=== PATIENT | male | born 1995 | race Caucasian/White ===

== ENCOUNTER 2021-05-26 23:57 | Inpatient (IN) | payer MEDICAID, OTHER ==
[~2021-05-26] VITALS: Ht 170.2 cm; Wt 75.3 kg
[2021-05-27 00:41] LABS: BASOPHILS % (AUTO) 0.4 % (0.0-2.0); EOSINOPHILS % (AUTO) 0.5 % (1.0-6.0); HEMATOCRIT 43.5 % (41-53); HEMOGLOBIN 14.8 g/dL (13.5-17.5); LYMPHOCYTES # (AUTO) 3.2 K/uL (1.0-4.8); LYMPHOCYTES % (AUTO) 35.5 % (22.0-44.0); MEAN CORPUSCULAR HEMOGLOBIN 32.3 pg (26.0-34.0); MEAN CORPUSCULAR VOLUME 95 fL (80-100); MONOCYTES # (AUTO) 0.7 K/uL (0.1-1.0); MONOCYTES % (AUTO) 8.2 % (2.0-9.0); NEUTROPHILS # (AUTO) 5.1 K/uL (1.8-7.7); NEUTROPHILS % (AUTO) 55.4 % (40.0-70.0); PLATELET COUNT (AUTO) 280 K/uL (150-450); RED BLOOD CELL COUNT(AUTO) 4.57 MIL/uL (4.50-5.90); RED CELL DISTRIBUTION WIDTH 13.2 % (11.5-14.5)
[2021-05-27 00:49] LABS: AMPHET/METH SCREEN,URINE POSITIVE (NEGATIVE); BARBITURATE SCREEN, URINE NEGATIVE (NEGATIVE); BENZODIAZEPINES SCREEN,URINE NEGATIVE (NEGATIVE); CANNABINOID SCREEN,URINE POSITIVE (NEGATIVE); COCAINE SCREEN,URINE NEGATIVE (NEGATIVE); METHADONE SCREEN, URINE NEGATIVE (NEGATIVE); OPIATE SCREEN,URINE NEGATIVE (NEGATIVE)
[2021-05-27 00:50] LABS: ANION GAP 9 mmol/L (8-16); CALCIUM, TOTAL 8.7 mg/dL (8.8-10.5); CARBON DIOXIDE 28 mmol/L (22-29); CHLORIDE 103 mmol/L (98-107); CREATININE 1.07 mg/dL (0.60-1.30); GLOMERULAR FILTR. RATE CALC > 60 mL/min (>60); GLUCOSE,RANDOM 118 mg/dL (70-110); POTASSIUM 4.5 mmol/L (3.5-5.1); SODIUM SERUM 140 mmol/L (136-145); UREA NITROGEN, BLOOD 8 mg/dL (7-18)
[2021-05-27 00:50] LABS: PHENCYCLIDINE SCREEN,URINE NEGATIVE (NEGATIVE)
[2021-05-27 00:57] LABS: ALANINE AMINOTRANSFERASE 32 U/L (12-78); ALBUMIN 4.6 g/dL (3.4-5.0); ALKALINE PHOSPHATASE 73 U/L (46-116); ASPARTATE AMINOTRANSFERASE 23 U/L (15-37); BILIRUBIN,TOTAL 0.4 mg/dL (0.1-1.0)
[2021-05-27] MEDS ORDERED: ChlordiazePOXIDE HCL 25 MG CAPSULE PO PRN (04:00)
[2021-05-27 04:07] LABS: COVID AG,FIA SOURCE NASOPHARYNGEAL
[2021-05-27 04:29] LABS: FREE T4 (FREE THYROXINE) 1.08 ng/dL (0.76-1.46); THYROID STIMULATING HORMONE 1.96 uIU/mL (0.36-3.74)
[2021-05-27 05:15] LABS: APPEARANCE,URINE CLEAR (CLEAR); BILIRUBIN,URINE NEGATIVE (NEGATIVE); GLUCOSE, URINE (UA) NEGATIVE (NEGATIVE); KETONES,URINE NEGATIVE (NEGATIVE); LEUKOCYTE ESTERASE ,URINE NEGATIVE (NEGATIVE); NITRATE,URINE NEGATIVE (NEGATIVE); OCCULT BLOOD,URINE NEGATIVE (NEGATIVE); PROTEIN,URINE NEGATIVE (NEGATIVE); UROBILINOGEN,URINE 0.2 mg/dL (<=1.0)
[2021-05-27] MEDS ORDERED: ONDANSETRON HCL 4 MG TABLET PO ONE (10:30)
[2021-05-27 12:30] VITALS: BP 114/72
[2021-05-27] MEDS: HALOPERIDOL 5 MG TABLET PO PRN (15:53)
[2021-05-27 16:21] VITALS: BP 123/73
[2021-05-27 20:17] VITALS: BP 113/73
[2021-05-27] MEDS: ZOLPIDEM TARTRATE 10 MG TABLET PO PRN (20:35)
[2021-05-27] MEDS ORDERED: BACITRACIN 0.9 GM PACKET OINTMENT TP ONE (21:00)
[2021-05-27 21:46] VITALS: BP 113/73
[2021-05-28] VITALS (9 sets, daily range): BP systolic 101–126; BP diastolic 61–83
[2021-05-28] MEDS ORDERED: ChlordiazePOXIDE HCL 25 MG CAPSULE PO PRN (07:00)
[2021-05-28] MEDS: ChlordiazePOXIDE HCL 25 MG CAPSULE PO SCH ×4 (08:27→20:18)
[2021-05-28] MEDS: HALOPERIDOL 5 MG TABLET PO PRN ×2 (12:13→17:24)
[2021-05-28] MEDS ORDERED: DOCUSATE SODIUM 100 MG CAPSULE PO PRN (15:00)
[2021-05-28] MEDS ORDERED: MAG HYDROX/AL HYDROX/SIMETH ES 30 ML SUSPENSION UDCUP PO PRN (15:00)
[2021-05-28] MEDS ORDERED: PETROLATUM,WHITE 28 GM JELLY TP PRN (15:00)
[2021-05-28] MEDS ORDERED: IBUPROFEN 400 MG TABLET PO PRN (15:00)
[2021-05-28] MEDS ORDERED: NICOTINE 14 MG/24 HOUR PATCH TD PRN (15:00)
[2021-05-28] MEDS ORDERED: CloNIDine HCL 0.1 MG TABLET PO PRN (15:00)
[2021-05-28] MEDS ORDERED: ONDANSETRON HCL 4 MG TABLET PO PRN (15:00)
[2021-05-28] MEDS ORDERED: GuaiFENesin/D-METHORPHAN [SUGAR-FREE] 200-20MG/10 ML SYRUP UDCUP PO PRN (15:00)
[2021-05-28] MEDS ORDERED: MAGNESIUM HYDROXIDE SUSPENSION 30 ML UDCUP PO PRN (15:00)
[2021-05-28] MEDS ORDERED: ACETAMINOPHEN 325 MG TABLET PO PRN (15:00)
[2021-05-28] MEDS ORDERED: LOPERAMIDE HCL 2 MG CAPSULE PO PRN (15:00)
[2021-05-28] MEDS ORDERED: ALBUTEROL SULFATE HFA 90 MCG/PUFF 8 GM INHALER IH PRN (15:00)
[2021-05-28] MEDS: ZOLPIDEM TARTRATE 10 MG TABLET PO PRN (20:21)
[2021-05-29] VITALS (10 sets, daily range): BP systolic 100–110; BP diastolic 61–71
[2021-05-29] MEDS: ChlordiazePOXIDE HCL 25 MG CAPSULE PO SCH ×4 (08:29→20:04)
[2021-05-29] MEDS: HALOPERIDOL 5 MG TABLET PO PRN ×2 (16:30→20:30)
[2021-05-30 00:05] VITALS: BP 98/60
[2021-05-30] MEDS ORDERED: ChlordiazePOXIDE HCL 10 MG CAPSULE PO PRN (07:00)
[2021-05-30 08:00] VITALS: BP 99/60
[2021-05-30] MEDS: ChlordiazePOXIDE HCL 10 MG CAPSULE PO SCH ×2 (08:20→12:26)
[2021-05-30 08:45] VITALS: BP 99/57
[2021-05-31] MEDS ORDERED: ChlordiazePOXIDE HCL 10 MG CAPSULE PO PRN (07:00)
== END 2021-05-30 15:35 | disposition home or self-care (01) | DRG 751 ==
LOC: EMS 05-27 00:04 → B2S 05-27 12:03
PROVIDERS: ADMIT Psychiatry & Neurology Child & Adolescent Psychiatry; ATTEND Psychiatry & Neurology Child & Adolescent Psychiatry
DX: F33.2 Major depressive disorder, recurrent severe without psychotic features (principal); R45.851 Suicidal ideations; F10.10 Alcohol abuse, uncomplicated; R10.13 Epigastric pain; R73.9 Hyperglycemia, unspecified; Y90.8 Blood alcohol level of 240 mg/100 ml or more; F41.9 Anxiety disorder, unspecified; Z20.822 Contact with and (suspected) exposure to COVID-19
CPT/HCPCS: 80053; 80061; 81003; 84439; 84443; 85025; 99285; G0480; Q0162

== ENCOUNTER 2021-07-27 15:59 | Inpatient (IN) | payer MEDICAID ==
[~2021-07-27] VITALS: Ht 172.7 cm; Wt 82.1 kg
[2021-07-27] MEDS ORDERED: HALOPERIDOL 5 MG TABLET PO PRN (17:00)
[2021-07-27] MEDS ORDERED: LORazepam 2 MG TABLET PO PRN (17:00)
[2021-07-27 17:06] LABS: GLUCOMETER DEV NAME(LOC) POC.BV
[2021-07-27 17:29] VITALS: BP 99/60
[2021-07-27 19:01] VITALS: BP_SYST 110; BP_SYST 98; BP_DIAS 62; BP_DIAS 70
[2021-07-27 20:05] VITALS: BP 110/70
[2021-07-27 21:50] VITALS: BP 101/59
[2021-07-27] MEDS ORDERED: ONDANSETRON HCL 4 MG TABLET PO PRN (22:00)
[2021-07-28] VITALS (9 sets, daily range): BP systolic 101–136; BP diastolic 62–88
[2021-07-28] MEDS ORDERED: PETROLATUM,WHITE 28 GM JELLY TP PRN (06:30)
[2021-07-28] MEDS ORDERED: ACETAMINOPHEN 325 MG TABLET PO PRN (06:30)
[2021-07-28] MEDS ORDERED: GuaiFENesin/D-METHORPHAN [SUGAR-FREE] 200-20MG/10 ML SYRUP UDCUP PO PRN ×2 (06:30→11:15)
[2021-07-28] MEDS ORDERED: DOCUSATE SODIUM 100 MG CAPSULE PO PRN (06:30)
[2021-07-28] MEDS ORDERED: MAGNESIUM HYDROXIDE SUSPENSION 30 ML UDCUP PO PRN (06:30)
[2021-07-28] MEDS ORDERED: NICOTINE 14 MG/24 HOUR PATCH TD PRN (06:30)
[2021-07-28] MEDS ORDERED: IBUPROFEN 400 MG TABLET PO PRN (06:30)
[2021-07-28] MEDS ORDERED: LOPERAMIDE HCL 2 MG CAPSULE PO PRN ×2 (06:30→11:15)
[2021-07-28] MEDS ORDERED: MAG HYDROX/AL HYDROX/SIMETH ES 30 ML SUSPENSION UDCUP PO PRN (06:30)
[2021-07-28] MEDS ORDERED: CloNIDine HCL 0.1 MG TABLET PO PRN (06:30)
[2021-07-28] MEDS ORDERED: ALBUTEROL SULFATE HFA 90 MCG/PUFF 8 GM INHALER IH PRN (06:30)
[2021-07-28] MEDS: ONDANSETRON HCL 4 MG TABLET PO PRN ×2 (06:48→16:11)
[2021-07-28 07:51] LABS: BASOPHILS % (AUTO) 0.3 % (0.0-2.0); EOSINOPHILS % (AUTO) 0.9 % (1.0-6.0); LYMPHOCYTES # (AUTO) 2.3 K/uL (1.0-4.8); LYMPHOCYTES % (AUTO) 19.3 % (22.0-44.0); MEAN CORPUSCULAR HEMOGLOBIN 31.6 pg (26.0-34.0); MEAN CORPUSCULAR HGB CONC 32.6 G/dL (31.0-37.0); MEAN CORPUSCULAR VOLUME 97 fL (80-100); MONOCYTES # (AUTO) 1.2 K/uL (0.1-1.0); MONOCYTES % (AUTO) 9.8 % (2.0-9.0); NEUTROPHILS # (AUTO) 8.3 K/uL (1.8-7.7); NEUTROPHILS % (AUTO) 69.7 % (40.0-70.0); PLATELET COUNT (AUTO) 284 K/uL (150-450); RED BLOOD CELL COUNT(AUTO) 4.74 MIL/uL (4.50-5.90); RED CELL DISTRIBUTION WIDTH 13.9 % (11.5-14.5)
[2021-07-28 08:14] LABS: ALANINE AMINOTRANSFERASE 110 U/L (12-78); ALBUMIN 4.1 g/dL (3.4-5.0); ALKALINE PHOSPHATASE 59 U/L (46-116); ANION GAP 8 mmol/L (8-16); ASPARTATE AMINOTRANSFERASE 56 U/L (15-37); BILIRUBIN,TOTAL 0.5 mg/dL (0.1-1.0); CARBON DIOXIDE 27 mmol/L (22-29); CHLORIDE 104 mmol/L (98-107); CHOL/HDL RATIO 3.2 (4.2-7.3); CHOLESTEROL 194 mg/dL (131-200); CREATININE 1.03 mg/dL (0.60-1.30); FREE T4 (FREE THYROXINE) 1.01 ng/dL (0.76-1.46); GLOMERULAR FILTR. RATE CALC > 60 mL/min (>60); GLUCOSE,RANDOM 95 mg/dL (70-110); HDL CHOLESTEROL 60 mg/dL (40-60); LDL CHOL (CALC.) 88 mg/dL (0-130); POTASSIUM 4.3 mmol/L (3.5-5.1); SODIUM SERUM 139 mmol/L (136-145); TOTAL PROTEIN, SERUM 7.6 g/dL (6.4-8.2); TRIGLYCERIDES 230 mg/dL (15-150); UREA NITROGEN, BLOOD 14 mg/dL (7-18)
[2021-07-28] MEDS ORDERED: HydrOXYzine PAMOATE 50 MG CAPSULE PO PRN (11:15)
[2021-07-28] MEDS ORDERED: CYANOCOBALAMIN 1,000 MCG/ML VIAL IM ONE (11:15)
[2021-07-28] MEDS ORDERED: LORazepam 2 MG TABLET PO PRN (11:15)
[2021-07-28] MEDS: MULTIVITAMINS WITH MINERALS, THERAPEUTIC TABLET PO SCH (12:59)
[2021-07-28] MEDS: FOLIC ACID 1 MG TABLET PO SCH (12:59)
[2021-07-28] MEDS: SERTRALINE HCL 50 MG TABLET PO SCH (12:59)
[2021-07-28] MEDS: THIAMINE 100 MG TABLET PO SCH (16:11)
[2021-07-29 06:12] VITALS: BP 118/79
[2021-07-29 06:13] VITALS: BP 118/79
[2021-07-29] MEDS ORDERED: LORazepam 2 MG TABLET PO PRN (07:00)
[2021-07-29 08:15] VITALS: BP 129/84
[2021-07-29] MEDS: THIAMINE 100 MG TABLET PO SCH ×2 (08:49→16:40)
[2021-07-29] MEDS: LORazepam 2 MG TABLET PO SCH ×4 (08:49→20:26)
[2021-07-29] MEDS: FOLIC ACID 1 MG TABLET PO SCH (08:49)
[2021-07-29] MEDS: SERTRALINE HCL 50 MG TABLET PO SCH (08:49)
[2021-07-29] MEDS: MULTIVITAMINS WITH MINERALS, THERAPEUTIC TABLET PO SCH (08:49)
[2021-07-29 12:00] VITALS: BP 123/85
[2021-07-29 16:00] VITALS: BP 120/76
[2021-07-29 18:18] VITALS: BP 120/76
[2021-07-30 05:08] VITALS: BP 122/74
[2021-07-30 05:22] VITALS: BP 122/74
[2021-07-30 08:44] VITALS: BP 106/67
[2021-07-30] MEDS: SERTRALINE HCL 50 MG TABLET PO SCH (09:02)
[2021-07-30] MEDS: FOLIC ACID 1 MG TABLET PO SCH (09:02)
[2021-07-30] MEDS: MULTIVITAMINS WITH MINERALS, THERAPEUTIC TABLET PO SCH (09:02)
[2021-07-30] MEDS: LORazepam 2 MG TABLET PO SCH ×4 (09:02→20:45)
[2021-07-30] MEDS: THIAMINE 100 MG TABLET PO SCH ×2 (09:02→16:35)
[2021-07-30 16:00] VITALS: BP 111/79
[2021-07-30 16:20] VITALS: BP 111/79
[2021-07-31 04:39] VITALS: BP 111/64
[2021-07-31 06:38] VITALS: BP 115/78
[2021-07-31] MEDS ORDERED: LORazepam 1 MG TABLET PO PRN (07:00)
[2021-07-31 07:45] LABS: APPEARANCE,URINE CLEAR (CLEAR); BILIRUBIN,URINE NEGATIVE (NEGATIVE); GLUCOSE, URINE (UA) NEGATIVE (NEGATIVE); KETONES,URINE NEGATIVE (NEGATIVE); LEUKOCYTE ESTERASE ,URINE NEGATIVE (NEGATIVE); NITRATE,URINE NEGATIVE (NEGATIVE); OCCULT BLOOD,URINE NEGATIVE (NEGATIVE); PH,URINE 6.5 (5.0-8.0); PROTEIN,URINE NEGATIVE (NEGATIVE); UROBILINOGEN,URINE 0.2 mg/dL (<=1.0)
[2021-07-31 07:49] LABS: AMPHET/METH SCREEN,URINE NEGATIVE (NEGATIVE); BARBITURATE SCREEN, URINE NEGATIVE (NEGATIVE); BENZODIAZEPINES SCREEN,URINE NEGATIVE (NEGATIVE); CANNABINOID SCREEN,URINE POSITIVE (NEGATIVE); COCAINE SCREEN,URINE NEGATIVE (NEGATIVE); METHADONE SCREEN, URINE NEGATIVE (NEGATIVE); OPIATE SCREEN,URINE NEGATIVE (NEGATIVE)
[2021-07-31 07:52] LABS: PHENCYCLIDINE SCREEN,URINE NEGATIVE (NEGATIVE)
[2021-07-31 08:05] VITALS: BP 103/60
[2021-07-31] MEDS: MULTIVITAMINS WITH MINERALS, THERAPEUTIC TABLET PO SCH (08:15)
[2021-07-31] MEDS: FOLIC ACID 1 MG TABLET PO SCH (08:15)
[2021-07-31] MEDS: THIAMINE 100 MG TABLET PO SCH ×2 (08:15→17:09)
[2021-07-31] MEDS: LORazepam 1 MG TABLET PO SCH ×4 (08:16→20:15)
[2021-07-31] MEDS: SERTRALINE HCL 50 MG TABLET PO SCH (08:16)
[2021-07-31 10:52] VITALS: BP 116/68
[2021-07-31 16:18] VITALS: BP 111/74
[2021-07-31] MEDS: ZOLPIDEM TARTRATE 10 MG TABLET PO PRN (21:15)
[2021-08-01] VITALS (7 sets, daily range): BP systolic 115–137; BP diastolic 62–93
[2021-08-01] MEDS ORDERED: LORazepam 1 MG TABLET PO PRN (07:00)
[2021-08-01 07:07] LABS: COVID AG,FIA SOURCE NASOPHARYNGEAL
[2021-08-01] MEDS: FOLIC ACID 1 MG TABLET PO SCH (08:40)
[2021-08-01] MEDS: MULTIVITAMINS WITH MINERALS, THERAPEUTIC TABLET PO SCH (08:40)
[2021-08-01] MEDS: THIAMINE 100 MG TABLET PO SCH ×2 (08:40→16:36)
[2021-08-01] MEDS: SERTRALINE HCL 50 MG TABLET PO SCH (08:40)
[2021-08-01] MEDS: ZOLPIDEM TARTRATE 10 MG TABLET PO PRN (21:09)
[2021-08-02 01:11] VITALS: BP 112/66
[2021-08-02 01:30] VITALS: BP 112/66
[2021-08-02] MEDS: THIAMINE 100 MG TABLET PO SCH ×2 (08:27→16:38)
[2021-08-02] MEDS: SERTRALINE HCL 50 MG TABLET PO SCH (08:27)
[2021-08-02] MEDS: FOLIC ACID 1 MG TABLET PO SCH (08:27)
[2021-08-02] MEDS: MULTIVITAMINS WITH MINERALS, THERAPEUTIC TABLET PO SCH (08:27)
[2021-08-02 08:31] VITALS: BP 123/71
[2021-08-02] MEDS ORDERED: SERT-439 PO (12:37)
[2021-08-02 14:00] VITALS: BP 115/68
== END 2021-08-02 17:15 | disposition home or self-care (01) | DRG 751 ==
LOC: B2S 16:57
DX: F33.2 Major depressive disorder, recurrent severe without psychotic features (principal); R45.851 Suicidal ideations; E78.5 Hyperlipidemia, unspecified; D72.829 Elevated white blood cell count, unspecified; R74.01 Elevation of levels of liver transaminase levels; F10.10 Alcohol abuse, uncomplicated; F15.10 Other stimulant abuse, uncomplicated; F11.10 Opioid abuse, uncomplicated; F20.9 Schizophrenia, unspecified; Z20.822 Contact with and (suspected) exposure to COVID-19; Y90.9 Presence of alcohol in blood, level not specified; Z59.0 Homelessness; Z71.41 Alcohol abuse counseling and surveillance of alcoholic; Z71.51 Drug abuse counseling and surveillance of drug abuser; Z91.5 Personal history of self-harm
CPT/HCPCS: 80053; 80061; 80307; 81003; 83036; 84439; 84443; 85025; 87081; J3420; Q0162

== ENCOUNTER 2023-09-25 01:59 | Inpatient (IN) | payer MEDICAID, OTHER ==
[2023-09-25] VITALS (9 sets, daily range): BP systolic 104–135; BP diastolic 63–97; PULSE 72–105; RESP 17–19; TEMP 97–98.7; O2SAT 96–98
[~2023-09-25] VITALS: Ht 170.2 cm; Wt 88.0 kg
[~2023-09-25 01:59] MED LIST: SERT-439 PO
[2023-09-25 04:14] LABS: COVID AG,FIA SOURCE NASAL SWAB
[2023-09-25 04:22] LABS: ANION GAP 9 mmol/L (8-16); CALCIUM, TOTAL 8.7 mg/dL (8.8-10.5); CARBON DIOXIDE 29 mmol/L (22-29); CHLORIDE 104 mmol/L (98-107); GLOMERULAR FILTR. RATE CALC > 60 mL/min (>60); GLUCOSE,RANDOM 134 mg/dL (70-110); POTASSIUM 4.4 mmol/L (3.5-5.1); SODIUM SERUM 142 mmol/L (136-145); UREA NITROGEN, BLOOD 12 mg/dL (7-18)
[2023-09-25 04:27] LABS: BASOPHILS % (AUTO) 0.3 % (0.0-2.0); EOSINOPHILS % (AUTO) 0 % (1.0-6.0); HEMATOCRIT 43.5 % (41-53); LYMPHOCYTES # (AUTO) 2.1 K/uL (1.0-4.8); LYMPHOCYTES % (AUTO) 19.4 % (22.0-44.0); MEAN CORPUSCULAR HEMOGLOBIN 33.1 pg (26.0-34.0); MEAN CORPUSCULAR HGB CONC 34.5 G/dL (31.0-37.0); MEAN CORPUSCULAR VOLUME 96 fL (80-100); MONOCYTES # (AUTO) 0.6 K/uL (0.1-1.0); MONOCYTES % (AUTO) 5.6 % (2.0-9.0); NEUTROPHILS # (AUTO) 8.1 K/uL (1.8-7.7); NEUTROPHILS % (AUTO) 74.7 % (40.0-70.0); PLATELET COUNT (AUTO) 265 K/uL (150-450); RED BLOOD CELL COUNT(AUTO) 4.54 MIL/uL (4.50-5.90); RED CELL DISTRIBUTION WIDTH 12.9 % (11.5-14.5); WHITE BLOOD COUNT (AUTO) 10.9 K/uL (4.5-11.0)
[2023-09-25 04:29] LABS: ALCOHOL, BLOOD (SERUM) 267 mg/dL (0-10)
[2023-09-25 04:33] LABS: SARS-COV2 (COVID) ANTIGEN,FIA Negative (Negative)
[2023-09-25 04:36] LABS: ALANINE AMINOTRANSFERASE 31 U/L (12-78); ALBUMIN 3.9 g/dL (3.4-5.0); ALKALINE PHOSPHATASE 64 U/L (46-116); ASPARTATE AMINOTRANSFERASE 21 U/L (15-37); BILIRUBIN,TOTAL 0.3 mg/dL (0.1-1.0); TOTAL PROTEIN, SERUM 7.1 g/dL (6.4-8.2)
[2023-09-25] MEDS ORDERED: DiphenhydrAMINE HCL 25 MG CAPSULE PO ONE (04:45)
[2023-09-25] MEDS ORDERED: LORazepam 2 MG TABLET PO ONE (04:45)
[2023-09-25] MEDS ORDERED: HALOPERIDOL 5 MG TABLET PO ONE (04:45)
[2023-09-25 05:42] LABS: AMPHET/METH SCREEN,URINE POSITIVE (NEGATIVE); BARBITURATE SCREEN, URINE NEGATIVE (NEGATIVE); BENZODIAZEPINES SCREEN,URINE NEGATIVE (NEGATIVE); CANNABINOID SCREEN,URINE POSITIVE (NEGATIVE); COCAINE SCREEN,URINE NEGATIVE (NEGATIVE); METHADONE SCREEN, URINE NEGATIVE (NEGATIVE); OPIATE SCREEN,URINE NEGATIVE (NEGATIVE); PHENCYCLIDINE SCREEN,URINE NEGATIVE (NEGATIVE)
[2023-09-25 05:46] LABS: ALCOHOL, URINE DRUG SCREEN POSITIVE (NEGATIVE)
[2023-09-25] MEDS ORDERED: ZOLPIDEM TARTRATE 10 MG TABLET PO PRN (07:15)
[2023-09-25] MEDS ORDERED: HALOPERIDOL 5 MG TABLET PO PRN (07:15)
[2023-09-25 08:09] LABS: APPEARANCE,URINE TURBID (CLEAR); BILIRUBIN,URINE NEGATIVE (NEGATIVE); GLUCOSE, URINE (UA) NEGATIVE (NEGATIVE); KETONES,URINE NEGATIVE (NEGATIVE); LEUKOCYTE ESTERASE ,URINE NEGATIVE (NEGATIVE); NITRATE,URINE NEGATIVE (NEGATIVE); OCCULT BLOOD,URINE NEGATIVE (NEGATIVE); PROTEIN,URINE NEGATIVE (NEGATIVE); SPECIFIC GRAVITIY, URINE 1.016 (1.003-1.030); UROBILINOGEN,URINE <=1.0 mg/dL (<=1.0)
[2023-09-25 08:10] LABS: COLOR,URINE YELLOW (YELLOW)
[2023-09-25] MEDS ORDERED: INFLUENZA VIRUS VACCINE QVS 2023-24 (6MO+)/PF 60 MCG/0.5 ML SYRINGE IM. ONE (12:30)
[2023-09-25] MEDS ORDERED: PETROLATUM,WHITE 28 GM JELLY TP PRN (13:15)
[2023-09-25] MEDS ORDERED: MAG HYDROX/ALUMINUM HYD/SIMETH ES 30 ML SUSPENSION UDCUP PO PRN (13:15)
[2023-09-25] MEDS ORDERED: ACETAMINOPHEN 325 MG TABLET PO PRN (13:15)
[2023-09-25] MEDS ORDERED: DOCUSATE SODIUM 100 MG CAPSULE PO PRN (13:15)
[2023-09-25] MEDS ORDERED: ONDANSETRON HCL 4 MG TABLET PO PRN (13:15)
[2023-09-25] MEDS ORDERED: IBUPROFEN 400 MG TABLET PO PRN (13:15)
[2023-09-25] MEDS ORDERED: NICOTINE 14 MG/24 HOUR PATCH TD PRN (13:15)
[2023-09-25] MEDS ORDERED: CloNIDine HCL 0.1 MG TABLET PO PRN (13:15)
[2023-09-25] MEDS ORDERED: MAGNESIUM HYDROXIDE SUSPENSION 30 ML UDCUP PO PRN (13:15)
[2023-09-25] MEDS ORDERED: LOPERAMIDE HCL 2 MG CAPSULE PO PRN (13:15)
[2023-09-25] MEDS ORDERED: GuaiFENesin/D-METHORPHAN [SUGAR-FREE] 200-20MG/10 ML SYRUP UDCUP PO PRN (13:15)
[2023-09-25] MEDS ORDERED: ALBUTEROL SULFATE HFA 90 MCG/PUFF 8 GM INHALER IH PRN (13:15)
[2023-09-26 03:42] VITALS: BP 122/79; PULSE 73; RESP 18; TEMP 97.5; O2SAT 97
[2023-09-26 07:11] VITALS: BP 118/75; PULSE 82; RESP 16; TEMP 97.6; O2SAT 98
[2023-09-26 08:10] LABS: HEMOGLOBIN A1C 5.6 % (3.8-5.6)
[2023-09-26 08:30] LABS: THYROID STIMULATING HORMONE 1.93 uIU/mL (0.36-3.74)
[2023-09-26 09:49] VITALS: BP 136/88; PULSE 71; RESP 17; TEMP 97.7; O2SAT 99
[2023-09-26] MEDS: ESCITALOPRAM OXALATE 10 MG TABLET PO SCH (11:56)
[2023-09-26 14:56] VITALS: BP 120/76
[2023-09-26] MEDS: LORazepam 2 MG TABLET PO PRN (15:01)
[2023-09-26 16:40] VITALS: BP 120/74; PULSE 78; RESP 18; TEMP 98.2; O2SAT 98
[2023-09-26 20:16] VITALS: BP 137/91; PULSE 76; RESP 19; TEMP 98.1; O2SAT 99
[2023-09-27 05:07] LABS: HEPATITIS C AB (EIA) Non Reactive (Non Reactive)
[2023-09-27] MEDS: ESCITALOPRAM OXALATE 10 MG TABLET PO SCH (08:11)
[2023-09-27] MEDS: LORazepam 2 MG TABLET PO PRN ×2 (08:11→16:38)
[2023-09-27 08:12] VITALS: BP 112/82; PULSE 74; RESP 18; TEMP 97.7; O2SAT 98
[2023-09-27 22:54] VITALS: BP 128/58; PULSE 78; RESP 18; TEMP 98; O2SAT 98
[2023-09-28 08:11] VITALS: BP 113/81; PULSE 86; RESP 18; TEMP 97.8; O2SAT 100
[2023-09-28] MEDS: ESCITALOPRAM OXALATE 10 MG TABLET PO SCH (08:44)
[2023-09-28] MEDS: LORazepam 2 MG TABLET PO PRN (08:50)
[2023-09-28] MEDS ORDERED: ESCI-8 PO ×2 (10:18→12:01)
== END 2023-09-28 13:16 | disposition home or self-care (01) | DRG 751 ==
LOC: EMS 02:00 → B2S 09:43 → UNDODISIN 09-28 12:00
PROVIDERS: ADMIT Psychiatry & Neurology Child & Adolescent Psychiatry; ATTEND Psychiatry & Neurology Child & Adolescent Psychiatry
DX: F33.2 Major depressive disorder, recurrent severe without psychotic features (principal); R45.851 Suicidal ideations; E78.5 Hyperlipidemia, unspecified; F10.229 Alcohol dependence with intoxication, unspecified; Z20.822 Contact with and (suspected) exposure to COVID-19; F15.10 Other stimulant abuse, uncomplicated; R73.9 Hyperglycemia, unspecified; Z79.899 Other long term (current) drug therapy
CPT/HCPCS: 80053; 80061; 80307; 81003; 83036; 84443; 85025; 86803; 87340; G0480